=== PATIENT | male | born 1955 | race Caucasian/White ===

== ENCOUNTER 2016-11-28 18:45 | Emergency (ER) | payer MEDICAID, OTHER ==
[~2016-11-28] VITALS: Ht 172.7 cm; Wt 87.0 kg
[2016-11-28 18:54] VITALS: Ht 172.7 cm; Wt 87.0 kg
[2016-11-28] MEDS ORDERED: HYDROCODONE/APAP (5/325) TAB PO ONE (19:30)
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
[2016-11-28 20:27] LABS: ADD SCAN DIFF NO
[2016-11-28 20:29] LABS: BASOPHILS % 0.5 % (0.0-2.0); EOSINOPHILS # 0.2 10^3/ul (0.0-0.5); EOSINOPHILS % 2.8 % (0.0-7.0); HEMATOCRIT 41.3 % (42.0-52.0); HEMOGLOBIN 14.8 g/dl (14.0-18.0); LYMPHOCYTES # 2.5 10^3/ul (0.8-2.9); LYMPHOCYTES % 38.9 % (15.0-51.0); MEAN CORPUSCULAR HEMOGLOBIN 31.2 pg (29.0-33.0); MEAN CORPUSCULAR HGB CONC 35.8 g/dl (32.0-37.0); MEAN CORPUSCULAR VOLUME 86.9 fl (82.0-101.0); MEAN PLATELET VOLUME 11.2 fl (7.4-10.4); MONOCYTE # 0.5 10^3/ul (0.3-0.9); NEUTROPHIL # 3.2 10^3/ul (1.6-7.5); NEUTROPHILS % 49.6 % (39.0-77.0); PLATELET COUNT 142 10^3/UL (140-415); RED BLOOD COUNT 4.75 10^6/ul (4.70-6.10); RED CELL DISTRIBUTION WIDTH 12.9 % (11.5-14.5); WHITE BLOOD COUNT 6.5 10^3/ul (4.8-10.8)
[2016-11-28 20:44] LABS: INR 0.94; PROTIME 12.6 Sec (12.2-14.2)
[2016-11-28 20:45] LABS: PARTIAL THROMBOPLASTIN TIME 28.3 Sec (25.0-35.0)
[2016-11-28 20:51] LABS: ANION GAP 17 (8-16); BLOOD UREA NITROGEN 10 mg/dl (7-20); CALCIUM 9.1 mg/dl (8.4-10.2); CARBON DIOXIDE 25 mmol/L (21-31); CHLORIDE 104 mmol/L (97-110); CREATININE 0.67 mg/dl (0.61-1.24); GLUCOSE 124 mg/dl (70-220); POTASSIUM 3.7 mmol/L (3.5-5.1); SODIUM 142 mmol/L (135-144)
[2016-11-28 21:29] LABS: TROPONIN-I < 0.012 ng/ml (0.00-0.12)
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
[2016-11-28] MEDS ORDERED: HYDR-906 PO (22:00)
[2016-11-28] MEDS ORDERED: IBUP400T22 PO (22:00)
[2016-11-28 22:24] VITALS: BP 137/82; PULSE 52; RESP 18; TEMP 98.4
== END 2016-11-28 22:26 | disposition home or self-care (01) ==
LOC: FTE 18:45
DX: S20.212A Contusion of left front wall of thorax, initial encounter (principal); I10 Essential (primary) hypertension; V18.4XXA Pedal cycle driver injured in noncollision transport accident in traffic accident, initial encounter
CPT/HCPCS: 71100; 80048; 84484; 85025; 85610; 85730; 93005; Z7610; 36415